=== PATIENT | male | born 1990 | race Caucasian/White ===

== ENCOUNTER → 2018-11-16 09:11 | Outpatient (POV) | payer BC, SELFPAY | PROVIDERS: Visit Provider Dermatology | DX: Z00.00 Encounter for general adult medical examination without abnormal findings (principal) ==

== ENCOUNTER → 2019-08-29 12:53 | Outpatient (CLI) | payer BC, SELFPAY ==
--- NOTE | 2019-08-29 13:37 | XR_ITS ---
PROCEDURE: XR SHOULDER RT MIN 2V CLINICAL INDICATION: RT SHOULDER PAIN Pain and clicking in the right shoulder COMPARISON: No exams were available for comparison FINDINGS: There is a small bone island in the humeral head. No fracture or dislocation. IMPRESSION: No acute finding the Dictated by: Dane Lozano MD 08/29/2019 19:31 Electronically signed by Dane Lozano MD in [place] 08/29/2019 19:31
[2019-08-29 15:45] LABS: Erythrocyte Sedimentation Rate 2 mm/hr (0-15)
[2019-08-29 15:57] LABS: Uric Acid 6.7 mg/dl (3.5-8.5)
[2019-08-29 16:03] LABS: C-Reactive Protein 4.4 mg/L (0-4)
[2019-08-31 11:00] LABS: RA Latex Turbid. <10.0 IU/mL (0.0-13.9)
[2019-09-01 01:40] LABS: Antinuclear Antibodies, IFA Negative (.)
== END ==
PROVIDERS: Visit Provider Nurse Practitioner Family
DX: L40.9 Psoriasis, unspecified (principal); M25.50 Pain in unspecified joint; M25.511 Pain in right shoulder
CPT/HCPCS: 36415; 73030; 84550; 85651; 86038; 86140; 86431

== ENCOUNTER 2019-09-14 19:34 | Emergency (ER) | payer BC, SELFPAY ==
--- NOTE | 2019-09-14 20:00 | HMH.EDUTC ---
[facility] [place] Clinical Impression: Exposure to COVID-19 virus Disposition: Home, Self-Care Condition on Discharge: Good Instructions: Preventing the Spread of Coronavirus Discharge Instructions Additional Instructions: Self Quarantine until you know the results of your covid test. Follow up with your regular doctor. GO TO THE ER FOR ANY WORSENING SYMPTOMS OR CONCERNS Referrals: Carolin Gomez APRN [Primary Care Provider] - Forms: Work/School Release Time of Disposition: 20:17 Medical Decision Making - Medical Records Medical records reviewed: No: I reviewed the patient's medical records. - Hany Inquiry Pt receiving controlled substance: No Vital Signs: 09/14/19 20:02 09/14/19 20:51 Temperature 98.7 F 98.9 F Temperature Source Oral Oral Pulse Rate 84 Pulse Rate [Right Brachial] 89 Respiratory Rate 16 16 Blood Pressure 0/0 L Blood Pressure Source Automatic Cuff Blood Pressure Position Sitting 02 Sat by Pulse Oximetry 98 Oxygen Delivery Method Room Air Room Air Orders (Tests/Meds): ORDERS Category Date Time Status SARS-CoV-2, GERALDINE Stat Lab 09/14/19 19:56 [place] [facility] [place] - General Stated complaint: wants to a COVID 19 test Time Seen by Provider: 09/14/19 20:05 - History of Present Illness Provider Complaint: He states that he was exposed to someone with covid-19 at work that he worked closely with. He denies any symptoms, such as cough, fever, chills, sore throat etc. - Related Data Previous Rx's Medication Instructions Recorded Fluconazole [Diflucan 150mg tab] 150 mg PO DAILY 10 Days #10 tab 04/01/19 Mupirocin [Bactroban 2% Ointment 1 applicatio TP TID 10 Days #4 tube 04/01/19 22gm tube] Triamcinolone Acetonide 15 gm TP TID 10 Days #60 oint...g. 04/01/19 methylPREDNISolone [Medrol 4mg 4 mg PO DIRECTED #21 tab 04/01/19 tab] Allergies Allergy/AdvReac Type Severity Reaction Status Date / Time No Known Allergies Allergy Verified 09/14/19 20:07 [facility] History - Hepatitis A Screen Attestation statement:: This patient has been screened for Hepatitis A risk factors. I have reviewed the patient's past medical history: Yes - Social History Smoking Status: Current every day smoker Tobacco Type: cigarettes # Packs/Day (cigarettes): 1 Alcohol Intake: never Occupational Status: other ROS Obtained: Yes All systems reviewed & no additional complaints - Constitutional Constitutional: Denies chills, Denies fever(s), Denies poor appetite, Denies malaise - Eyes Eyes: Denies eye discharge - ENT Ears, Nose, Mouth, and Throat: Denies dizziness, Denies otalgia, Denies sore throat - Cardiovascular Cardiovascular: Denies chest pain - Respiratory Respiratory: No chest congestion, No cough, No dyspnea, No coughing up blood, No stridor, No wheezing Physical Exam - General General appearance: alert, in no apparent distress - Head Head exam: atraumatic, normocephalic, normal inspection - Eye Eye exam: Present: normal appearance, PERRL, EOMI - ENT ENT exam: Present: normal exam, normal oropharynx, mucous membranes moist, TM's normal bilaterally, normal external ear exam - Neck Neck exam: Present: normal inspection, full ROM, trachea midline. Absent: meningismus, lymphadenopathy - Chest Chest inspection: Present: normal inspection, symmetric chest wall rise. Absent: tenderness - Respiratory Respiratory exam: Present: normal lung sounds bilaterally. Absent: respiratory distress - Cardiovascular Cardiovascular exam: Present: regular rate, normal rhythm. Absent: JVD - Abdominal Exam Abdominal exam: Present: soft, normal bowel sounds. Absent: distention, tenderness, guarding - Extremities Exam Extremities exam: Present: normal inspection, full ROM, normal capillary refill. Absent: calf tenderness - Back Exam Back exam: Present: normal inspection. Absent: tenderness - Neurological Exam Neurological exam: Pr
[2019-09-14 20:02] VITALS: PULSE 89; RESP 16; TEMP 37.1; O2SAT 98; BMI 33.3
[2019-09-14 20:51] VITALS: BP 0/0; PULSE 84; RESP 16; TEMP 37.2; O2SAT 98
[2019-09-16 13:39] LABS: Covid-19 Nasal PCR Sendout Lex NOT DETECTED
== END 2019-09-14 20:52 | disposition home or self-care (01) ==
PROVIDERS: Emergency Provider Nurse Practitioner Family; PCP Nurse Practitioner Family
DX: Z20.828 Contact with and (suspected) exposure to other viral communicable diseases (principal); F17.210 Nicotine dependence, cigarettes, uncomplicated
CPT/HCPCS: 99201; U0004

== ENCOUNTER → 2020-04-17 17:59 | Outpatient (CLI) | payer BC, SELFPAY ==
[2020-04-17 19:15] LABS: Basophils # 0.1 K/mm3 (0-0.2); Basophils % 0.9 % (0.1-2.0); Eosinophils # 0.4 K/mm3 (0.0-0.4); Eosinophils % 3.5 % (0.1-12.0); Hematocrit 48.2 % (42.0-52.0); Hemoglobin 15.3 g/dL (14.1-18.0); Lymphocytes # 2.9 K/mm3 (0.7-4.5); Lymphocytes % 26.2 % (10-50); Mean Corpuscular HGB Conc 31.7 g/dL (31.8-35.4); Mean Corpuscular Hemoglobin 26.8 pg (27.0-31.2); Mean Corpuscular Volume 84.7 fl (80-94); Mean Platelet Volume 7.9 fl (7.4-10.4); Monocytes # 0.5 K/mm3 (0.1-1.0); Monocytes % 4.7 % (1.7-9.3); Neutrophils # 7.1 K/mm3 (1.8-7.8); Neutrophils % 64.7 % (37.0-80.0); Platelet Count 245 K/mm3 (142-424); Red Blood Count 5.69 M/mm3 (4.60-6.20)
[2020-04-17 19:45] LABS: Alanine Aminotransferase 38 U/L (12-78); Albumin Level 4.3 g/dl (3.5-5.0); Albumin/Globulin Ratio 1.5 (1.1-1.8); Alkaline Phosphatase 61 U/L (38-126); Anion Gap 11.9 mEq/L (5-15); Aspartate Amino Transferase 29 U/L (17-59); Bilirubin,Total 0.4 mg/dl (0.2-1.3); Blood Urea Nitrogen 10 mg/dl (9-20); Calcium 9.8 mg/dl (8.4-10.2); Carbon Dioxide 30 mmol/L (22.0-30.0); Chloride 104 mmol/L (98-107); Estimated Glomerular Filt Rate 89 ml/min (>60); GFR (African American) 108 ML/MIN (>60); Globulin 2.9 g/dL (1.3-3.2); Glucose 107 mg/dl (74-100); Potassium 3.9 mmoL/L (3.5-5.1); Sodium 142 mmol/L (136-145); Total Protein,Serum 7.2 g/dl (6.3-8.2)
[2020-04-19 14:14] LABS: HIV Screen 4th Generation wRfx Non Reactive (Non Reactive)
[2020-04-19 14:15] LABS: Hepatitis B Core Antibody IgM Negative (Negative); Hepatitis B Surf Ab Quant <3.1 mIU/mL (Immunity>9.9); Hepatitis C Antibody <0.1 s/co ratio (0.0-0.9)
[2020-04-21 08:35] LABS: QuantiFERON-TB Gold Plus Negative (Negative)
== END ==
PROVIDERS: Visit Provider Dermatology
DX: L40.0 Psoriasis vulgaris (principal)
CPT/HCPCS: 36415; 80053; 85025; 86480; 86703; 86704; 86706; 87380; G0432

== ENCOUNTER → 2020-07-16 15:33 | Outpatient (CLI) | payer BC, SELFPAY | PROVIDERS: PCP Nurse Practitioner Family; Visit Provider Nurse Practitioner Family | DX: Z20.822 Contact with and (suspected) exposure to COVID-19 (principal) | CPT/HCPCS: U0003 ==

== ENCOUNTER 2024-07-21 17:30 | Outpatient (CLI) | payer BC, SELFPAY ==
[2024-07-22 09:18] LABS: HIV Combo NEGATIVE (Negative)
[2024-07-23 09:11] LABS: HBsAg Screen Negative (Negative); HCV Ab Non Reactive (Non Reactive); Hep A Ab, IGM Negative (Negative); Hep B Core Ab, IgM Negative (Negative)
[2024-07-23 19:15] LABS: QuantiFERON-TB Gold Plus Negative (Negative)
== END 2024-07-21 23:59 | disposition home or self-care (01) ==
LOC: LAB 17:32
PROVIDERS: Nurse Practitioner; PCP Family Medicine; Visit Provider Family Medicine
DX: Z79.899 Other long term (current) drug therapy (principal)
CPT/HCPCS: 36415; 80074; 86480; 86803; 87389